=== PATIENT | female | born 1975 | race Caucasian/White ===

== ENCOUNTER 2019-10-24 01:37 | Emergency (ER) | payer SELFPAY ==
[2019-10-24 01:46] VITALS: BP 133/93; PULSE 77
[2019-10-24] MEDS ORDERED: Sodium Chloride 0.9% 10 ML Syringe FLUSH PRN (02:05)
[2019-10-24] MEDS ORDERED: Ketorolac 15 MG/ML SDV IVPUSH ONE ×2 (02:06→02:10)
[2019-10-24] MEDS ORDERED: Morphine 4 MG/ML Syringe IVPUSH ONE (02:10)
--- NOTE | 2019-10-24 02:30 | EDM.PDOC ---
ED HPI GENERAL MEDICAL PROBLEM - General Chief Complaint: General Stated Complaint: rib pain Time Seen by Provider: 10/24/19 02:04 Source of Information: Reports: Patient History Limitations: Reports: No Limitations - History of Present Illness INITIAL COMMENTS - FREE TEXT/NARRATIVE: Pt. presents to ER with complaints of R sided respirophasic chest pain. Pt. states that she has been experiencing this for several days. She was seen in ER last week for nausea, vomiting and diarrhea. She was tested for covid at that time. Denies any fever or chills. States that the discomfort is constant but much worse when taking a deep breath. Pt. is a smoker and is not on hormone replacement therapy. Pt. denies any substernal chest pain. No continued nausea or vomiting. Pt. denies any palpitations or lightheadedness. Pt. states that the discomfort is getting progressively worse. She states that even simple movements and walking exacerbate the discomfort. She is prescribed oxycodone for back pain but states that this has not been helping with the discomfort at all. Pt. states that she may have gotten injured while moving heavy objects around at home. 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 Onset: Today Onset Date: 10/16/19 Location: Reports: Chest Quality: Reports: Ache, Sharp, Throbbing Improves with: Reports: Rest Worsens with: Reports: Movement Associated Symptoms: Reports: Nausea/Vomiting (see HPI). Denies: Confusion, Cough, cough w sputum, Diaphoresis, Fever/Chills, Malaise, Shortness of Breath, Syncope, Weakness Right Pain Score (Numeric/FACES): 8 - Related Data Allergies Allergy/AdvReac Type Severity Reaction Status Date / Time No Known Allergies Allergy Verified 10/24/19 01:38 Home Meds: Home Meds Propranolol [Inderal] 2 tab PO DAILY 09/24/13 [History] metFORMIN [Glucophage] 1,000 mg PO DAILY 09/24/13 [History] atorvaSTATin [Lipitor] 20 mg PO BEDTIME 10/17/14 [History] clonazePAM [Clonazepam] 1 tab PO BID 10/17/14 [History] Social & Family History - Tobacco Use Smoking Status *Q: Current Status Unknown ED ROS GENERAL - Review of Systems Review Of Systems: See Below Constitutional: Reports: No Symptoms HEENT: Reports: No Symptoms Respiratory: Reports: Pleuritic Chest Pain Cardiovascular: Reports: No Symptoms Endocrine: Reports: No Symptoms GI/Abdominal: Reports: No Symptoms : Reports: No Symptoms Musculoskeletal: Reports: No Symptoms Skin: Reports: No Symptoms Neurological: Reports: No Symptoms Psychiatric: Reports: No Symptoms Hematologic/Lymphatic: Reports: No Symptoms Immunologic: Reports: No Symptoms ED EXAM, GENERAL - Physical Exam Exam: See Below Exam Limited By: No Limitations General Appearance: Alert, WD/WN, Moderate Distress Throat/Mouth: Normal Inspection, Normal Lips, Normal Teeth, Normal Gums, Normal Oropharynx, Normal Voice, No Airway Compromise Head: Atraumatic, Normocephalic Neck: Normal Inspection, Supple, Non-Tender, Full Range of Motion Respiratory/Chest: No Respiratory Distress, Normal Breath Sounds, No Accessory Muscle Use, Chest Non-Tender, Pleural Rub (R base) Cardiovascular: Normal Peripheral Pulses, Regular Rate, Rhythm, No Edema, No JVD, No Murmur, No Rub Peripheral Pulses: 4+: Radial (L) GI/Abdominal: Normal Bowel Sounds, Soft, Non-Tender, No Organomegaly, No Distention, No Mass (Female) Exam: Deferred Rectal (Female) Exam: Deferred Back Exam: Normal Inspection, Full Range of Motion Extremities: Normal Inspection, Normal Range of Motion, Non-Tender, No Pedal Edema, Normal Capillary Refill Neurological: Alert, Oriented, CN II-XII Intact, Normal Cognition, Normal Gait, Normal Reflexes, No Motor/Sensory Deficits Psychiatric: Normal Affect, Anxious EKG INTERPRETATION Rhythm: NSR [place]: Normal P-Wave: Present QRS: Normal ST-T: Normal QT: Normal Course - Vital Signs Last Recorded V/S: Last Vital Signs Temp 36.7 C 10/24/19 01:41 Pulse 77 10/24/19 01:41 Resp 18 10/24/19 01:41 BP 133/93 H 10/24/19 01:41 Pulse Ox 97 10/24/19 01:41 - Orders/Labs/Meds Orders: Active Orders 24 hr Category Date Time Status EKG Documentation Completion [RC] STAT Care 10/24/19 02:05 Active Chest 1V Frontal [CR] Stat Exams 10/24/19 02:07 Taken Sodium Chloride 0.9% [Saline Flush] Med 10/24/19 02:05 Active 10 ml FLUSH ASDIRECTED PRN Peripheral IV Insertion Adult [OM.PC] Routine Oth 10/24/19 02:06 Ordered Medication Orders Sodium Chloride (Saline Flush) 10 ml FLUSH ASDIRECTED PRN PRN Reason: Keep Vein Open Last Admin: 10/24/19 02:26 Dose: 10 ml Documented by: FARRAH Labs: Laboratory Tests 10/24/19 10/24/19 10/24/19 Range/Units 02:32 02:32 02:32 WBC 7.8 (4.0-10.0) x10^3/uL RBC 3.96 L (4.00-5.50) x10^6/uL Hgb 12.2 (12.0-16.0) g/dL Hct 35.2 (33.0-47.0) % MCV 88.9 (78.0-93.0) fL MCH 30.8 (26.0-32.0) pg MCHC 34.7 (32.0-36.0) g/dL RDW Coeff of Lesley 12.6 (10.0-15.0) % Plt Count 179 (130-400) x10^3/uL Neut % (Auto) 41.6 L (50.0-80.0) % Lymph % (Auto) 44.5 (25.0-50.0) % Pershing % (Auto) 8.2 (2.0-11.0) % Eos % (Auto) 5.3 H (0.0-4.0) % Baso % (Auto) 0.4 (0.2-1.2) % PT 10.0 (9.5-12.3) SEC INR 0.9 L (2.0-3.5) D-Dimer, Quantitative 0.30 (<=0.58) mg/LFEU Sodium 144 (136-145) mmol/L Potassium 3.6 (3.5-5.1) mmol/L Chloride 107 (98-107) mmol/L Carbon Dioxide 27 (21-32) mmol/L Anion Gap 13.6 (10-20) mmol/L BUN 17 (7-18) mg/dL Creatinine 0.9 (0.55-1.02) mg/dL Est Cr Clr Drug Dosing TNP Estimated GFR (MDRD) > 60 Glucose 92 (74-106) mg/dL Calcium 8.3 L (8.5-10.1) mg/dL Corrected Calcium 8.62 (8.5-10.1) mg/dL Magnesium 1.7 L (1.8-2.4) mg/dL Total Bilirubin 0.3 (0.2-1.0) mg/dL AST 12 L (15-37) U/L ALT 22 (14-59) U/L Alkaline Phosphatase 47 (46-116) U/L C-Reactive Protein 0.4 (<=0.9) mg/dL Total Protein 6.6 (6.4-8.2) g/dL Albumin 3.6 (3.4-5.0) g/dL Globulin 3.0 Albumin/Globulin Ratio 1.20 Ethyl Alcohol < 3 (0-3) mg/dL Meds: Medications Generic Name Dose Route Start Last Admin Trade Name Freq PRN Reason Stop Dose Admin Sodium Chloride 10 ml 10/24/19 02:05 10/24/19 02:26 Saline Flush FLUSH 10 ml ASDIRECTED PRN Administration Keep Vein Open Discontinued Medications Generic Name Dose Route Start Last Admin Trade Name Freq PRN Reason Stop Dose Admin Ketorolac Tromethamine 15 mg 10/24/19 02:06 10/24/19 02:17 Toradol IVPUSH 10/24/19 02:07 15 mg ONETIME ONE Administration Ketorolac Tromethamine 15 mg 10/24/19 02:10 Toradol IVPUSH 10/24/19 02:11 ONETIME ONE Methylprednisolone Sodium Succinate 125 mg 10/24/19 03:04 Solu-Medrol IV 10/24/19 03:05 ONETIME ONE Morphine Sulfate 4 mg 10/24/19 02:10 10/24/19 02:26 Morphine IVPUSH 10/24/19 02:11 4 mg ONETIME ONE Administration - Radiology Interpretation Free Text/Narrative:: No acute pathology Departure - Departure Time of Disposition: 03:10 Disposition: Home, Self-Care 01 Clinical Impression: Atypical chest pain - Discharge Information Instructions: Nonspecific Chest Pain, Adult, [id number], Prednisone tablets Referrals: PCP,None [Primary Care Provider] - Forms: ED Department Discharge Additional Instructions: Prednisone 40mg once daily starting Friday AM. Ibuprofen 200mg 3 tabs every 6 hours as needed for pain. I would take that on a schedule for the next several days or until you are starting to feel better. Recheck in clinic in 7-10 days, worse if not gradually improving. Sepsis Event Note (ED) - Evaluation Sepsis Screening Result: No Definite Risk - Focused Exam Vital Signs: Vital Signs Temp Pulse Resp BP Pulse Ox 10/24/19 01:41 36.7 C 77 18 133/93 H 97 - Problem List Review Problem List Initiated/Reviewed/Updated: Yes - My Orders Last 24 Hours: My Active Orders 10/24/19 02:05 EKG Documentation Completion [RC] STAT Sodium Chloride 0.9% [Saline Flush] 10 ml FLUSH ASDIRECTED PRN 10/24/19 02:06 Peripheral IV Insertion Adult [OM.PC] Routine 10/24/19 02:07 Chest 1V Frontal [CR] Stat - Assessment/Plan Last 24 Hours: My Active Orders 10/24/19 02:05 EKG Documentation Completion [RC] STAT Sodium Chloride 0.9% [Saline Flush] 10 ml FLUSH ASDIRECTED PRN 10/24/19 02:06 Peripheral IV Insertion Adult [OM.PC] Routine 10/24/19 02:07 Chest 1V Frontal [CR] Stat Plan: Prednisone 40mg once daily starting Friday AM. Ibuprofen 200mg 3 tabs every 6 hours as needed for pain. I would take that on a schedule for the next several days or until you are starting to feel better. Recheck in clinic in 7-10 days, worse if not gradually improving.
[2019-10-24 02:55] LABS: CHLORIDE,CL 107 mmol/L (98-107); SODIUM,NA 144 mmol/L (136-145)
[2019-10-24 02:56] LABS: ANION GAP 13.6 mmol/L (10-20)
[2019-10-24] MEDS ORDERED: methylPREDNISolone Sodium Succinate 125 MG/2 ML SDV IV ONE (03:04)
--- NOTE | 2019-10-24 08:34 | CR ---
[id number] RAD/RAD Chest PA or AP 1V EXAM: FRONTAL CHEST INDICATION: Right-sided chest pain and pleural rub. COMPARISON: None. DISCUSSION: The heart and lungs are normal in appearance. IMPRESSION: 1. Negative exam. Bryant Sy MD 10/24/19 0832 Thank you for allowing us to participate in the care of your patient.
== END 2019-10-24 03:20 | disposition home or self-care (01) ==
LOC: VM.ED 01:37
DX: R07.89 Other chest pain (principal); Z79.899 Other long term (current) drug therapy
CPT/HCPCS: 36415; 71045; 80053; 80307; 83735; 85025; 85379; 85610; 86140; 93005; 93010; 96374; 96375; 99284-GF; 99285-25; J1885; J2270; J2930